=== PATIENT | male | born 1950 | race Caucasian/White ===

== ENCOUNTER 2021-08-09 08:50 | Day surgery (SDC) | payer MEDICARE, BC ==
[~2021-08-09 08:50] MED LIST: Lactated Ringers 1,000 ML IV SCH; Lidocaine 1% 5 ML VIAL ONE; Propofol 200 MG/20 ML SDV ONE; fentaNYL 100 MCG/2 ML SDV ONE
[2021-08-09] MEDS ORDERED: Propofol 200 MG/20 ML SDV ONE ×2 (11:19→11:32)
[2021-08-09] MEDS ORDERED: Lactated Ringers 1,000 ML IV SCH (12:00)
== END 2021-08-09 12:40 | disposition home or self-care (01) ==
LOC: MW.SDS 08:50
PROVIDERS: ATTEND Surgery
DX: Z12.11 Encounter for screening for malignant neoplasm of colon (principal); K57.30 Diverticulosis of large intestine without perforation or abscess without bleeding; K64.9 Unspecified hemorrhoids; D12.3 Benign neoplasm of transverse colon; D12.2 Benign neoplasm of ascending colon; D12.8 Benign neoplasm of rectum; N40.0 Benign prostatic hyperplasia without lower urinary tract symptoms; I10 Essential (primary) hypertension; E66.9 Obesity, unspecified; Z68.30 Body mass index [BMI] 30.0-30.9, adult; Z98.890 Other specified postprocedural states; Z79.899 Other long term (current) drug therapy; Z86.010 Personal history of colon polyps
CPT/HCPCS: 00812; J2704; J3010; J7120